=== PATIENT | female | born 1955 | race African-American/Black ===

== ENCOUNTER 2024-11-19 16:29 | Emergency (ER) | payer MEDICARE, OTHER | END 2024-11-19 18:44 | disposition home or self-care (01) | LOC: CSHERS 16:29 | DX: S52.135A Nondisplaced fracture of neck of left radius, initial encounter for closed fracture (principal); S52.125A Nondisplaced fracture of head of left radius, initial encounter for closed fracture; I12.9 Hypertensive chronic kidney disease with stage 1 through stage 4 chronic kidney disease, or unspecified chronic kidney disease; N18.4 Chronic kidney disease, stage 4 (severe); Z79.899 Other long term (current) drug therapy; W18.30XA Fall on same level, unspecified, initial encounter | CPT/HCPCS: 29105 ==